=== PATIENT | male | born 1950 | race Caucasian/White ===

== ENCOUNTER → 2024-01-16 | Outpatient (CLI) | payer MEDICARE, BC ==
--- NOTE | 2024-01-16 09:40 | XR ---
EXAMINATION TYPE: XR pelvis AP view DATE OF EXAM: 01/16/2024 9:34 AM CLINICAL INDICATION:Male, 73 years old with history of R52 PAIN; [facility] COMPARISON: None TECHNIQUE: The pelvis was examined in a single projection. FINDINGS: There is no evidence of fracture or dislocation. There is no soft tissue abnormality. Ather osclerosis of the arterial vasculature. Degeneration changes of the spine with osteophyte formation d isc space narrowing and facet joint arthropathy. The spine appears intact. The hips appear intact. Os teophyte formation of the superior acetabulum bilaterally with mild joint space narrowing. IMPRESSION: 1. No acute osseous pathology. 2. Mild degeneration changes of the hip. 3. Moderate degeneration changes of the spine.
--- NOTE | 2024-01-16 09:43 | XR ---
EXAMINATION TYPE: XR lumbar spine 2 or 3V, XR cervical spine comp, XR thoracic spine complete DATE OF EXAM: 01/16/2024 9:33 AM CLINICAL INDICATION:Male, 73 years old with history of R52 PAIN; [facility] COMPARISON: None TECHNIQUE: XR lumbar spine 2 or 3V, XR cervical spine comp, XR thoracic spine complete - Frontal, lat eral and coned in L5-S1 lateral views of the spine. Abdomen lateral views of the thoracic and cervical spine. FINDINGS: No evidence of any acute osseous pathology. Multilevel wedging of the midthoracic vertebral body. Osteophytes are present throughout the spine with bridging osteophytes in the cervical spine. Visualized cervical spine appears intact with facet and uncovertebral joint arthropathy with at least mild neural foraminal stenosis throughout the cervical spine. The odontoid process is intact. The nitza mbar spine demonstrates osteophyte formation disc space narrowing and facet joint arthropathy. No evidence of acute fracture throughout the spine. IMPRESSION: 1. No acute fracture. 2. 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
== END | disposition home or self-care (01) ==
LOC: RADXRMAIN 08:43
PROVIDERS: ATTEND Chiropractor
DX: M51.36 Other intervertebral disc degeneration, lumbar region (principal)
CPT/HCPCS: 72050; 72072; 72100; 72170